=== PATIENT | female | born 2000 | race Hispanic/Latino ===

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

== ENCOUNTER 2021-03-19 10:44 | Emergency (ER) | payer OTHER ==
--- NOTE | 2021-03-19 11:24 | EDM.PDOC ---
ED HPI GENERAL MEDICAL PROBLEM - General Chief Complaint: Respiratory Problem Stated Complaint: CHEST PAIN,CONGESTION Time Seen by Provider: 03/19/21 10:45 Source of Information: Reports: Patient History Limitations: Reports: No Limitations - History of Present Illness INITIAL COMMENTS - FREE TEXT/NARRATIVE: HISTORY AND PHYSICAL: History of present illness: Patient is a 20-year-old female who presents to the emergency room with complaints of midsternal chest pain and increased pain with taking deep breaths. She did have the symptoms approximately 5 to 6 days ago, was seen at the respiratory clinic on Friday. She did have a rapid COVID-19 test which was negative. Symptoms have not resolved. She has had subjective fevers. Patient denies any headache, change in vision, syncope or near syncope. Denies any back pain, hemoptysis or cough. Denies any GI or symptoms. No concern for .. Review of systems: As per history of present illness and below otherwise all systems reviewed and negative. Past medical history: As per history of present illness and as reviewed below otherwise noncontributory. Surgical history: As per history of present illness and as reviewed below otherwise noncontributory. Social history: See social history for further information Family history: As per history of present illness and as reviewed below otherwise noncont ributory. Physical exam: General: Well developed and well nourished. Alert and orientated x 3. Nontoxic in appearance and in no acute distress. Vital signs are stable and have been reviewed by me. Nursing notes were reviewed. HEENT: Atraumatic, normocephalic, pupils equal and reactive bilaterally, negative for conjunctival pallor or scleral icterus, mucous membranes moist, TMs normal bilaterally, throat clear, neck supple, nontender, trachea midline. No drooling or trismus noted. No meningeal signs. No hot potato voice noted. Lungs: Clear to auscultation bilaterally. No wheezes, rales, or rhonchi. Chest nontender. Normal work of breathing, no accessory muscles used. Heart: S1S2, regular rate and rhythm without overt murmur, gallops, or rubs. No JVD. No peripheral edema Abdomen: Soft, nondistended, nontender. Normoactive bowel sounds. Negative for masses or costovertebral tenderness. Skin: Intact, warm, dry. No lesions or rashes noted. Hematologic: No petechiae or purpra. Mucosa appropriate color and normal nail bed color and refill. Extremities: Atraumatic, moves all extremities per self without difficulty or deficits, negative for cords or calf pain. Neurovascular unremarkable. Neuro: Awake, alert, oriented. Cranial nerves II through XII unremarkable. Cerebellum unremarkable. Motor and sensory unremarkable throughout. Exam nonfocal. Psychiatric: Mood and affect are appropriate. Normal thought process. Answering questions appropriately. Notes: *This patient was seen and evaluated during the 2019 SARS-CoV-2 novel coronavirus pandemic period. Community viral transmission is ongoing at time of this encounter and the emergency department is operating under pandemic response procedures. Patient's physical exam is unremarkable. During the triage assessment she did s carter that she has had thoughts of self mutilation. Discussing this further she states that sometimes she does think about self inflicting lacerations to her body but has never acted upon it and has "more self-control than that". We discussed outpatient resources that can help her with these thoughts. If she does have worsening thoughts or does act upon them or has any thoughts of suicide that she should return to the emergency room immediately. Again patient reassures me that she would never act upon any self-mutilation and has not had thoughts of killing herself. I did offer to repeat a COVID-19/influenza test today, she declines. Due to age I did offer to do a test prior to x- ray, she declines stating she has no concern for . We will do a chest x-ray. X-ray shows no acute findings. Due to length of symptoms, will treat with abx. VSS. I have talked with the patient about today's findings, in addition to providing specific details for plan of care. Reassessment at the time of disposition demonstrates that the patient is in no acute distress. The patient is stable for discharge, counseling was provided and we discussed in great detail signs and symptoms that would prompt them to return to the Emergency Department. Medication, follow up and supportive care measures were reviewed and discussed. Voices understanding and is agreeable to plan of care. Denies any further questions or concerns at this time. Diagnostics: Chest x-ray Therapeutics: None Prescription: Tessalon, Z-Avery Impression: Bronchitis Plan: 1. You were evaluated today on an emergent basis. Your chest x-ray is unremarkable for pneumonia. We will treat you with an antibiotic and Tessalon Perles for your cough. 2. You can alternate Tylenol and ibuprofen as needed for pain and fever management. 3. We encourage you to follow up with your primary care provider and/or recommended specialist in the next few days for re-evaluation and further care/management. 4. If your symptoms should worsen, new symptoms develop or any of the signs and symptoms we discussed should arise please return to the emergency room or call 911 (if needed). Definitive disposition and diagnosis as appropriate pending reevaluation and review of above. - Related Data Allergies Allergy/AdvReac Type Severity Reaction Status Date / Time No Known Allergies Allergy Verified 03/19/21 10:57 Home Meds: Home Meds Azithromycin [Zithromax] 1 dose PO DAILY 5 Days #6 tab 03/19/21 [Rx] Benzonatate [Tessalon Perle] 100 mg PO TID PRN #20 capsule 03/19/21 [Rx] methylPREDNISolone [Medrol] 1 dose PO DAILY 6 Days #1 dospk 03/19/21 [Rx] Past Medical History - Past Health History Medical/Surgical History: Denies Medical/Surgical History HEENT History: Reports: None Cardiovascular History: Reports: None Respiratory History: Reports: None Gastrointestinal History: Reports: None Genitourinary History: Reports: None 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 Musculoskeletal History: Reports: None Neurological History: Reports: None Psychiatric History: Reports: None Endocrine/Metabolic History: Reports: None Hematologic History: Reports: None Immunologic History: Reports: None Oncologic (Cancer) History: Reports: None Dermatologic History: Reports: None - Infectious Disease History Infectious Disease History: Reports: Chicken Pox - Past Surgical History Head Surgeries/Procedures: Reports: None HEENT Surgical History: Reports: None Cardiovascular Surgical History: Reports: None Respiratory Surgical History: Reports: None GI Surgical History: Reports: None Female Surgical History: Reports: None Endocrine Surgical History: Reports: None Neurological Surgical History: Reports: None Musculoskeletal Surgical History: Reports: None Oncologic Surgical History: Reports: None Dermatological Surgical History: Reports: None Social & Family History - Family History Family Medical History: No Pertinent Family History - Tobacco Use Tobacco Use Status *Q: Current Every Day Tobacco User Years of Tobacco use: 2 Packs/Tins Daily: 1 - Caffeine Use Caffeine Use: Reports: Coffee, Energy Drinks, Soda, Tea - Recreational Drug Use Recreational Drug Use: Yes Recreational Drug Type: Reports: Marijuana/Hashish Recreational Drug Use Frequency: Daily ED ROS GENERAL - Review of Systems Review Of Systems: Comprehensive ROS is negative, except as noted in HPI. ED EXAM, GENERAL - Physical Exam Exam: See Below (See dictation) Course - Vital Signs Last Recorded V/S: Last Vital Signs Temp 97.5 F 03/19/21 11:59 Pulse 65 03/19/21 11:59 Resp 18 03/19/21 11:59 BP 119/61 03/19/21 11:59 Pulse Ox 98 03/19/21 11:59 Departure - Departure Time of Disposition: 11:37 Disposition: Home, Self-Care 01 Clinical Impression: Bronchitis - Discharge Information Prescriptions: methylPREDNISolone [Medrol] 1 dose PO DAILY 6 Days #1 dospk Benzonatate [Tessalon Perle] 100 mg PO TID PRN #20 capsule PRN Reason: Cough Azithromycin [Zithromax] 1 dose PO DAILY 5 Days #6 tab Instructions: Acute Bronchitis, Adult, [id number] Forms: ED Department Discharge Additional Instructions: The following information is given to patients seen in the emergency department who are being discharged to home. This information is to outline your options for follow-up care. We provide all patients seen in our emergency department with a follow-up referral. The need for follow-up, as well as the timing and circumstances, are variable depending upon the specifics of your emergency department visit. If you don't have a primary care physician on staff, we will provide you with a referral. We always advise you to contact your personal physician following an emergency department visit to inform them of the circumstance of the visit and for follow-up with them and/or the need for any referrals to a consulting specialist. The emergency department will also refer you to a specialist when appropriate. This referral assures that you have the opportunity for follow-up care with a specialist. All of these measure are taken in an effort to provide you with optimal care, which includes your follow-up. Under all circumstances we always encourage you to contact your private physician who remains a resource for coordinating your care. When calling for follow-up care, please make the office aware that this follow-up is from your recent emergency room visit. If for any reason you are refused follow-up, please contact the [facility] Emergency Department at and asked to speak to the emergency department charge nurse. [facility] [address] [place] [address] [facility] [address] [place] [address] Thank you for choosing the [facility] emergency department in [place] for your medical needs today. It was a pleasure caring for you. Today you were seen in the emergency department for cough and chest pain. 1. You were evaluated today on an emergent basis. Your chest x-ray is unremarkable for pneumonia. We will treat you with an antibiotic and Tessalon Perles for your cough. 2. You can alternate Tylenol and ibuprofen as needed for pain and fever management. 3. We encourage you to follow up with your primary care provider and/or recommended specialist in the next few days for re-evaluation and further ca re/management. 4. If your symptoms should worsen, new symptoms develop or any of the signs and symptoms we discussed should arise please return to the emergency room or call 911 (if needed). Sepsis Event Note (ED) - Evaluation Sepsis Screening Result: No Definite Risk - Focused Exam Vital Signs: Vital Signs Temp Pulse Resp BP Pulse Ox 03/19/21 11:59 97.5 F 65 18 119/61 98 03/19/21 10:55 96.7 F L 85 17 126/63 99
[2021-03-19 12:00] VITALS: BP 119/61; PULSE 65
--- NOTE | 2021-03-19 12:01 | CR ---
Indication: Pain and shortness of breath Comparison: None available. Technique: Single AP view chest Findings: There is no focal consolidation, effusion, or pneumothorax. The cardiomediastinal silhouette is within normal limits. The bony thorax is grossly intact. Impression: No acute cardiopulmonary abnormality. Dictated by Chucky Waters MD @ 03/19/2021 12:00:[address] Chucky Waters @ Mar 19 2021 12:00PM
== END 2021-03-19 12:05 | disposition home or self-care (01) ==
LOC: MW.ED 10:44
DX: J40 Bronchitis, not specified as acute or chronic (principal); Z72.0 Tobacco use
CPT/HCPCS: 71045; 71045-26; 99284-25

== ENCOUNTER 2021-03-25 20:59 | Emergency (ER) | payer OTHER ==
--- NOTE | 2021-03-25 21:56 | CR ---
HISTORY: Palpitations. COMPARISON: None. FINDINGS: Single frontal view of the chest. The lungs are clear. No evidence for pneumonia. Heart size and pulmonary vascularity within normal limits. Bones and soft tissues within normal. Dictated by Tammie Dasilva MD @ 03/25/2021 9:54:[address] Tammie Dasilva @ Mar 25 2021 9:54PM
[2021-03-25 22:06] LABS: BLOOD UREA NITROGEN,BUN 12 mg/dL (7.0-18.0); CARBON DIOXIDE,CO2 24.7 mmol/L (21.0-32.0); CHLORIDE,CL 106 mmol/L (98-107); GLUCOSE RANDOM 100 mg/dL (74-106); POTASSIUM,K 3.9 mmol/L (3.5-5.1); SODIUM,NA 142 mmol/L (136-145)
--- NOTE | 2021-03-25 22:46 | EDM.PDOC ---
ED HPI GENERAL MEDICAL PROBLEM - General Chief Complaint: General Stated Complaint: HEART PALPITATIONS, BRONCHITIS Time Seen by Provider: 03/25/21 21:10 - History of Present Illness INITIAL COMMENTS - FREE TEXT/NARRATIVE: HISTORY AND PHYSICAL: History of present illness: This is a 20-year-old female who presents ER today complaining of palpitations in her chest x1 day. Patient reports that she was seen diagnosed with bronchi tis and is finished a course of antibiotic. Patient denies any recent fevers, shakes, chills, nausea, vomiting, diarrhea, dysuria, frequency, urgency or any other symptoms since her diagnosis of bronchitis. Patient denies any shortness of breath. Patient has a lower extremity edema. Patient has any calf tenderness. Patient has an hemoptysis. Patient denies any mechanical pills. Patient does smoke marijuana and vapes nicotine. Patient denies any alcohol or other drugs. Patient denies any dizziness, syncope or presyncope. Review of systems: As per history of present illness and below otherwise all systems reviewed and negative. Past medical history: As per history of present illness and as reviewed below otherwise noncontributory. Surgical history: As per history of present illness and as reviewed below otherwise noncontributory. Social history: No reported history of drug abuse. Family history: As per history of present illness and as reviewed below otherwise noncontr ibutory. Physical exam: This patient was seen and evaluated during the 2019 SARS-CoV-2 novel coronavirus pandemic period. Community viral transmission is ongoing at time of this encounter and the emergency department is operating under pandemic response procedures. Constitutional: Patient is oriented to person, place, and time. Appears well- developed and well-nourished. No distress. HEENT: Moist mucous membranes Head: Normocephalic and atraumatic Eyes: Right eye exhibits no discharge. Left eye exhibits no discharge. No scleral icterus Neck: Normal range of motion. No tracheal deviation present. Cardiovascular: Normal rate and regular rhythm. Pulmonary: Effort normal, no respiratory distress. Abdominal: No distention Musculoskeletal: Normal range of motion Neurologic: Alert and oriented to person, place and time. Skin: Gazelle, warm and dry. Psychiatric: Normal mood and affect. Behavior is normal. Judgment and thought content normal. Nursing note and vital signs have been reviewed Diagnostics: CBC, CMP within normal limits Chest Xray: Normal cardiac silhouette No infiltrates or effusions identified. No PTX No evidence of acute bony fracture. As interpreted by ER MD: Ayleen EKG: As interpreted by ER physician: Ayleen: Nonspecific ST-T wave abnormalities Normal axis No evidence of ST elevation IA Normal sinus rhythm heart rate of 74 Therapeutics: [] Assessment and plan: 20-year-old who presents ER today with palpitations. Patient's labs are all within normal limits. Is unclear whether or not this might be residual effect from her bronchitis. Patient has no abnormalities in her cardiac work-up. Patient be discharged home safely with instructions to follow-up with her primary care physician for reevaluation. Reassessment at the time of disposition demonstrates that the patient is in no acute distress. The patient has remained stable throughout the entire ED visit and is without objective evidence for acute process requiring urgent inter vention or hospitalization. The patient is stable for discharge, counseling is provided as documented above, discussed symptomatic treatment and specific conditions for return. I have spoken with the patient/caregiver and discussed todays findings, in addition to providing specific details for the plan of care. Questions are answered and there is agreement with the plan. Definitive disposition and diagnosis as appropriate pending reevaluation and review of above. - Related Data Allergies Allergy/AdvReac Type Severity Reaction Status Date / Time No Known Allergies Allergy Verified 03/25/21 21:08 Home Meds: Home Meds . [No Known Home Meds] 03/25/21 [History] Past Medical History - Past Health History Medical/Surgical History: Denies Medical/Surgical History HEENT History: Reports: None Cardiovascular History: Reports: None Respiratory History: Reports: None Gastrointestinal History: Reports: None Genitourinary History: Reports: None NURSE FIRST ASSIST History: Reports: None Musculoskeletal History: Reports: None Neurological History: Reports: None Psychiatric History: Reports: None Endocrine/Metabolic History: Reports: None Hematologic History: Reports: None Immunologic History: Reports: None Oncologic (Cancer) History: Reports: None Dermatologic History: Reports: None - Infectious Disease History Infectious Disease History: Reports: Chicken Pox - Past Surgical History Head Surgeries/Procedures: Reports: None HEENT Surgical History: Reports: None Cardiovascular Surgical History: Reports: None Respiratory Surgical History: Reports: None GI Surgical History: Reports: None Female Surgical History: Reports: None Endocrine Surgical History: Reports: None Neurological Surgical History: Reports: None Musculoskeletal Surgical History: Reports: None Oncologic Surgical History: Reports: None Dermatological Surgical History: Reports: None Social & Family History - Family History Family Medical History: No Pertinent Family History - Caffeine Use Caffeine Use: Reports: Coffee - Recreational Drug Use Recreational Drug Use: Yes Drug Use in Last 12 Months: Yes Recreational Drug Type: Reports: Marijuana/Hashish Recreational Drug Use Frequency: Daily ED ROS GENERAL - Review of Systems Review Of Systems: See Below ED EXAM, GENERAL - Physical Exam Exam: See Below #1 Interpretation EKG Interpretation Comments: EKG: As interpreted by ER physician: Ayleen: Nonspecific ST-T wave abnormalities Normal axis No evidence of ST elevation IA Normal sinus rhythm heart rate of 74 Course - Vital Signs Last Recorded V/S: Last Vital Signs Temp 97.1 F 03/25/21 21:08 Pulse 89 03/25/21 21:08 Resp 16 03/25/21 21:08 BP 134/78 03/25/21 21:08 Pulse Ox 96 03/25/21 21:08 - Orders/Labs/Meds Orders: Active Orders 24 hr Category Date Time Status EKG Documentation Completion [RC] AM Care 03/25/21 21:16 Active HCG QUALITATIVE,URINE [URCHEM] Stat Lab 03/25/21 21:06 Received Labs: Laboratory Tests 03/25/21 03/25/21 03/25/21 Range/Units 21:06 21:30 21:30 WBC 12.43 H (4.0-11.0) K/uL RBC 5.60 (4.30-5.90) M/uL Hgb 15.8 (12.0-16.0) g/dL Hct 46.8 H (36.0-46.0) % MCV 83.6 (80.0-98.0) fL MCH 28.2 (27.0-32.0) pg MCHC 33.8 (31.0-37.0) g/dL RDW Std Deviation 38.6 (28.0-62.0) fl RDW Coeff of Teena 13 (11.0-15.0) % Plt Count 262 (150-400) K/uL MPV 10.30 (7.40-12.00) fL Neut % (Auto) 64.4 (48.0-80.0) % Lymph % (Auto) 25.9 (16.0-40.0) % Mckean % (Auto) 8.5 (0.0-15.0) % Eos % (Auto) 1.0 (0.0-7.0) % Baso % (Auto) 0.2 (0.0-1.5) % Neut # (Auto) 8.0 H (1.4-5.7) K/uL Lymph # (Auto) 3.2 H (0.6-2.4) K/uL Mckean # (Auto) 1.1 H (0.0-0.8) K/uL Eos # (Auto) 0.1 (0.0-0.7) K/uL Baso # (Auto) 0.0 (0.0-0.1) K/uL Nucleated RBC % 0.0 /100WBC Nucleated RBCs # 0 K/uL Sodium 142 (136-145) mmol/L Potassium 3.9 (3.5-5.1) mmol/L Chloride 106 (98-107) mmol/L Carbon Dioxide 24.7 (21.0-32.0) mmol/L BUN 12 (7.0-18.0) mg/dL Creatinine 1.0 (0.6-1.0) mg/dL Est Cr Clr Drug Dosing 78.14 mL/min Estimated GFR (MDRD) > 60.0 ml/min Glucose 100 (74-106) mg/dL Calcium 8.2 L (8.5-10.1) mg/dL Total Bilirubin 0.3 (0.2-1.0) mg/dL AST 14 L (15-37) IU/L ALT 26 (14-63) IU/L Alkaline Phosphatase 67 (46-116) U/L Troponin I < 0.050 (0.000-0.056) ng/mL Total Protein 7.4 (6.4-8.2) g/dL Albumin 3.8 (3.4-5.0) g/dL Globulin 3.6 (2.6-4.0) g/dL Albumin/Globulin Ratio 1.1 (0.9-1.6) TSH 3rd Generation 1.98 (0.52-4.13) uIU/mL Urine Color YELLOW Urine Appearance SLT CLOUDY Urine pH 6.0 (5.0-8.0) Ur Specific [place] 1.025 (1.001-1.035) Urine Protein NEGATIVE (NEGATIVE) mg/dL Urine Glucose (UA) NEGATIVE (NEGATIVE) mg/dL Urine Ketones NEGATIVE (NEGATIVE) mg/dL Urine Occult Blood MODERATE H (NEGATIVE) Urine Nitrite NEGATIVE (NEGATIVE) Urine Bilirubin NEGATIVE (NEGATIVE) Urine Urobilinogen 0.2 (<2.0) EU/dL Ur Leukocyte Esterase TRACE H (NEGATIVE) Urine RBC 1-4 (0-2/HPF) Urine WBC 3-6 (0-5/HPF) Ur Epithelial Cells FEW (NONE-FEW) Amorphous Sediment LIGHT (NEGATIVE) Urine Bacteria FEW (NEGATIVE) Urine Mucus LIGHT (NONE-MOD) Departure - Departure Time of Disposition: 22:46 Disposition: Home, Self-Care 01 Condition: Good Clinical Impression: Palpitations - Discharge Information Instructions: Palpitations, [id number] Referrals: PCP,None [Primary Care Provider] - Additional Instructions: You were seen and evaluated in the ER today secondary to palpitations. The work-up in the emergency department was completely normal. Please make an appointment to follow-up with your doctor for further evaluation of your symptoms and referrals as deemed appropriate. The following information is given to patients seen in the emergency department who are being discharged to home. This information is to outline your options for follow-up care. We provide all patients seen in our emergency department with a follow-up referral. The need for follow-up, as well as the timing and circumstances, are variable depending upon the specifics of your emergency department visit. If you don't have a primary care physician on staff, we will provide you with a referral. We always advise you to contact your personal physician following an emergency department visit to inform them of the circumstance of the visit and for follow-up with them and/or the need for any referrals to a consulting specialist. The emergency department will also refer you to a specialist when appropriate. This referral assures that you have the opportunity for follow-up care with a specialist. All of these measure are taken in an effort to provide you with optimal care, which includes your follow-up. Under all circumstances we always encourage you to contact your private physician who remains a resource for coordinating your care. When calling for follow-up care, please make the office aware that this follow-up is from your r ecent emergency room visit. If for any reason you are refused follow-up, please contact the [facility] Emergency Department at and asked to speak to the emergency department charge nurse. [facility] - Primary Care [address] [place] [address] [facility] [address] [place] [address] Sepsis Event Note (ED) - Evaluation Sepsis Screening Result: No Definite Risk - Focused Exam Vital Signs: Vital Signs Temp Pulse Resp BP Pulse Ox 03/25/21 21:08 97.1 F 89 16 134/78 96 - My Orders Last 24 Hours: My Active Orders 03/25/21 21:06 HCG QUALITATIVE,URINE [URCHEM] Stat 03/25/21 21:16 EKG Documentation Completion [RC] AM - Assessment/Plan Last 24 Hours: My Active Orders 03/25/21 21:06 HCG QUALITATIVE,URINE [URCHEM] Stat 03/25/21 21:16 EKG Documentation Completion [RC] AM
[2021-03-25 22:52] VITALS: BP 129/79; PULSE 70
== END 2021-03-25 22:51 | disposition home or self-care (01) ==
LOC: MW.ED 20:59
DX: R00.2 Palpitations (principal)
CPT/HCPCS: 36415; 71045; 71045-26; 80053; 81001; 81025; 84443; 84484; 85025; 93005; 93010; 99284; 99285-25

== ENCOUNTER 2021-04-16 09:31 | Emergency (ER) | payer OTHER ==
[2021-04-16] MEDS ORDERED: Sodium Chloride 0.9% 2.5 ML Syringe FLUSH PRN (09:59)
[2021-04-16] MEDS ORDERED: Ondansetron 4 MG/2 ML SDV IVPUSH ONE (09:59)
[2021-04-16] MEDS ORDERED: Sodium Chloride 0.9% 1,000 ML IV ONE (09:59)
[2021-04-16] MEDS ORDERED: Sodium Chloride 0.9% 10 ML Syringe FLUSH PRN (09:59)
--- NOTE | 2021-04-16 10:08 | EDM.PDOC ---
ED HPI GENERAL MEDICAL PROBLEM - General Chief Complaint: General Stated Complaint: FAINTED Time Seen by Provider: 04/16/21 09:59 - History of Present Illness INITIAL COMMENTS - FREE TEXT/NARRATIVE: HISTORY AND PHYSICAL: History of present illness: This is a 20-year-old female with no significant past medical history who presents to the ER today secondary to feeling weak and dizzy today. Patient reports that she woke up today to go to work. She reports she stood up and walking and getting ready and then woke up on the floor. Patient reports that she thinks that she passed out. Patient denies any pain or trauma to her head upper or lower extremities or back from falling to the ground with her syncopal episode. At this time, patient reports that she has had a cough with increased sputum production since her diagnosis of bronchitis 1 month ago. Patient reports that she has had nausea and vomiting x2 in the last 24 hours. Patient reports that her first episode of emesis was yesterday and her second episode of emesis was today after she passed out. Patient reports that she has had loose stools with approximately 3 episodes of diarrhea in the last 24 hours. Patient denies any recent fevers, shakes, chills. Patient has any chest pain or shortness of breath. Patient denies abdominal pain or discomfort. Patient reports that she is currently on her menses. Patient reports that she stopped vaping marijuana approximately 2 weeks ago but still vapes nicotine. Patient denies any other drugs. Patient reports that she did drink a bottle of kinky and 1 or 2 beers last night and thinks that her symptoms today may be related to that. Patient denies any dysuria, frequency, urgency. Patient denies any melena or bright red blood per rectum. Patient denies any hematemesis or coffee-ground emesis. Review of systems: As per history of present illness and below otherwise all systems reviewed and negative. Past medical history: As per history of present illness and as reviewed below otherwise nonco ntributory. Surgical history: As per history of present illness and as reviewed below otherwise noncontributory. Social history: No reported history of drug abuse. Family history: As per history of present illness and as reviewed below otherwise noncontributory. Physical exam: This patient was seen and evaluated during the 2019 SARS-CoV-2 novel coronavirus pandemic period. Community viral transmission is ongoing at time of this encounter and the emergency department is operating under pandemic response procedures. Constitutional: Patient is oriented to person, place, and time. Appears well- developed and well-nourished. No distress. HEENT: Moist mucous membranes Head: Normocephalic and atraumatic Eyes: Right eye exhibits no discharge. Left eye exhibits no discharge. No scleral icterus Neck: Normal range of motion. No tracheal deviation present. Cardiovascular: Normal rate and regular rhythm. Heart is regular rate and rhythm with an S1-S2 with no gallops murmurs or rubs. Pulmonary: Effort normal, no respiratory distress. Lungs are clear without any wheezing rales or rhonchi Abdominal: No distention, soft nondistended no rebound or guarding with normal active bowel sounds. Musculoskeletal: Normal range of motion Neuro: A&Ox3. Cranial nerves II-XII grossly intact, 5/5 strength to bilateral upper and lower extremities, sensation intact to bilateral upper and lower extremities, no nystagmus, PERRLA, EOMI, normal speech, proprioception intact to bilateral lower extremities, normal finger to nose test, gait normal. Skin: Erwin, warm and dry. Psychiatric: Normal mood and affect. Behavior is normal. Judgment and thought content normal. Nursing note and vital signs have been reviewed Diagnostics: CBC, CMP, UDS, UA, , EKG all within normal limits. Positive marijuana in urine Chest Xray: Normal cardiac silhouette No infiltrates or effusions identified. No PTX No evidence of acute bony fracture. As interpreted by ER MD: [employer]: NSS x1 L, Zofran Assessment and plan: This is a 20-year-old female who presents ER today with a syncopal episode this morning when she was getting ready for work. 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 Patient reports that she did drink more than usual last night and has been having episodes of nausea vomiting and diarrhea for the last 1 to 2 days. Patient reports that over the last several days she feels like her bronchitis is also coming back. Patient will receive IV fluids here in the ED, a dose of Zofran, we will check her electrolytes given her recent nausea vomiting and omar rrhea as well as alcohol use. Patient will be reevaluated once labs are obtained as well as chest x-ray. Patient's work-up in the ER is been unremarkable. Patient feels better after the IV fluids. Patient be discharged home with Zofran and instructions to rest and follow-up with her primary care physician. Reassessment at the time of disposition demonstrates that the patient is in no acute distress. The patient has remained stable throughout the entire ED visit and is without objective evidence for acute process requiring urgent intervention or hospitalization. The patient is stable for discharge, counseling is provided as documented above, discussed symptomatic treatment and specific conditions for return. I have spoken with the patient/caregiver and discussed todays findings, in addition to providing specific details for the plan of care. Questions are answered and there is agreement with the plan. Definitive disposition and diagnosis as appropriate pending reevaluation and sia guardado of above. - Related Data Allergies Allergy/AdvReac Type Severity Reaction Status Date / Time No Known Allergies Allergy Verified 04/16/21 09:46 Home Meds: Home Meds Ondansetron [Zofran ODT] 4 mg PO Q6H PRN #12 tab.dis 04/16/21 [Rx] Past Medical History - Past Health History Medical/Surgical History: Denies Medical/Surgical History HEENT History: Reports: None Cardiovascular History: Reports: None Respiratory History: Reports: None Other Respiratory History: bronchitis in March 2021 Gastrointestinal History: Reports: None Genitourinary History: Reports: None [employer] History: Reports: None Musculoskeletal History: Reports: None Neurological History: Reports: None Psychiatric History: Reports: None Endocrine/Metabolic History: Reports: None Hematologic History: Reports: None Immunologic History: Reports: None Oncologic (Cancer) History: Reports: None Dermatologic History: Reports: None - Infectious Disease History Infectious Disease History: Reports: None - Past Surgical History Head Surgeries/Procedures: Reports: None HEENT Surgical History: Reports: None Cardiovascular Surgical History: Reports: None Respiratory Surgical History: Reports: None GI Surgical History: Reports: None Female Surgical History: Reports: None Endocrine Surgical History: Reports: None Neurological Surgical History: Reports: None Musculoskeletal Surgical History: Reports: None Oncologic Surgical History: Reports: None Dermatological Surgical History: Reports: None Social & Family History - Family History Family Medical History: No Pertinent Family History - Caffeine Use Caffeine Use: Reports: Coffee - Recreational Drug Use Recreational Drug Use: No ED ROS GENERAL - Review of Systems Review Of Systems: See Below ED EXAM, GENERAL - Physical Exam Exam: See Below Course - Vital Signs Last Recorded V/S: Last Vital Signs Temp 97.0 F 04/16/21 09:46 Pulse 90 04/16/21 09:46 Resp 17 04/16/21 09:46 BP 118/70 04/16/21 09:46 Pulse Ox 98 04/16/21 09:46 - Orders/Labs/Meds Orders: Active Orders 24 hr Category Date Time Status Chest 2V [CR] Stat Exams 04/16/21 10:00 Taken Sodium Chloride 0.9% [Saline Flush] Med 04/16/21 09:59 Active 10 ml FLUSH ASDIRECTED PRN Sodium Chloride 0.9% [Saline Flush] Med 04/16/21 09:59 Active 2.5 ml FLUSH ASDIRECTED PRN Saline Lock Insert [OM.PC] Stat Oth 04/16/21 09:59 Ordered Medication Orders Sodium Chloride (Sodium Chloride 0.9% 10 Ml Syringe) 10 ml FLUSH ASDIRECTED PRN PRN Reason: Keep Vein Open Last Admin: 04/16/21 10:09 Dose: 10 ml Documented by: [id number] Sodium Chloride (Sodium Chloride 0.9% 2.5 Ml Syringe) 2.5 ml FLUSH ASDIRECTED PRN PRN Reason: Keep Vein Open Last Admin: 04/16/21 10:09 Dose: 2.5 ml Documented by: [email or web address] Labs: Laboratory Tests 04/16/21 04/16/21 04/16/21 Range/Units 10:12 10:12 10:12 WBC 5.92 (4.0-11.0) K/uL RBC 5.55 (4.30-5.90) M/uL Hgb 15.5 (12.0-16.0) g/dL Hct 46.1 H (36.0-46.0) % MCV 83.1 (80.0-98.0) fL MCH 27.9 (27.0-32.0) pg MCHC 33.6 (31.0-37.0) g/dL RDW Std Deviation 38.9 (28.0-62.0) fl RDW Coeff of Teena 13 (11.0-15.0) % Plt Count 233 (150-400) K/uL MPV 10.40 (7.40-12.00) fL Neut % (Auto) 55.7 (48.0-80.0) % Lymph % (Auto) 28.2 (16.0-40.0) % [place] % (Auto) 11.0 (0.0-15.0) % Eos % (Auto) 4.4 (0.0-7.0) % Baso % (Auto) 0.7 (0.0-1.5) % Neut # (Auto) 3.3 (1.4-5.7) K/uL Lymph # (Auto) 1.7 (0.6-2.4) K/uL [place] # (Auto) 0.7 (0.0-0.8) K/uL Eos # (Auto) 0.3 (0.0-0.7) K/uL Baso # (Auto) 0.0 (0.0-0.1) K/uL Nucleated RBC % 0.0 /100WBC Nucleated RBCs # 0 K/uL Sodium (136-145) mmol/L Potassium (3.5-5.1) mmol/L Chloride (98-107) mmol/L Carbon Dioxide (21.0-32.0) mmol/L BUN (7.0-18.0) mg/dL Creatinine (0.6-1.0) mg/dL Est Cr Clr Drug Dosing mL/min Estimated GFR (MDRD) ml/min Glucose (74-106) mg/dL Calcium (8.5-10.1) mg/dL Total Bilirubin (0.2-1.0) mg/dL AST (15-37) IU/L ALT (14-63) IU/L Alkaline Phosphatase (46-116) U/L Total Protein (6.4-8.2) g/dL Albumin (3.4-5.0) g/dL Globulin (2.6-4.0) g/dL Albumin/Globulin Ratio (0.9-1.6) Lipase (73-393) U/L Urine Color DARK YELLOW Urine Appearance CLEAR Urine pH 5.5 (5.0-8.0) Ur Specific [place] >= 1.030 (1.001-1.035) Urine Protein 30 H (NEGATIVE) mg/dL Urine Glucose (UA) NEGATIVE (NEGATIVE) mg/dL Urine Ketones NEGATIVE (NEGATIVE) mg/dL Urine Occult Blood LARGE H (NEGATIVE) Urine Nitrite NEGATIVE (NEGATIVE) Urine Bilirubin MODERATE H (NEGATIVE) Urine Ictotest NEGATIVE Urine Urobilinogen 1.0 (<2.0) EU/dL Ur Leukocyte Esterase NEGATIVE (NEGATIVE) Urine RBC 6-10 (0-2/HPF) Urine WBC RARE (0-5/HPF) Ur Epithelial Cells FEW (NONE-FEW) Urine Bacteria FEW (NEGATIVE) Urine HCG, Qual NEGATIVE (NEGATIVE) Urine Opiates Screen (NEGATIVE) Ur Oxycodone Screen (NEGATIVE) Urine Methadone Screen (NEGATIVE) Ur Barbiturates Screen (NEGATIVE) Ur Phencyclidine Scrn (NEGATIVE) Ur Amphetamine Screen (NEGATIVE) U Methamphetamines Scrn (NEGATIVE) U Benzodiazepines Scrn (NEGATIVE) U Cocaine Metab Screen (NEGATIVE) U Marijuana (THC) Screen (NEGATIVE) Ethyl Alcohol mg/dL 04/16/21 04/16/21 Range/Units 10:12 10:13 WBC (4.0-11.0) K/uL RBC (4.30-5.90) M/uL Hgb (12.0-16.0) g/dL Hct (36.0-46.0) % MCV (80.0-98.0) fL MCH (27.0-32.0) pg MCHC (31.0-37.0) g/dL RDW Std Deviation (28.0-62.0) fl RDW Coeff of Teena (11.0-15.0) % Plt Count (150-400) K/uL MPV (7.40-12.00) fL Neut % (Auto) (48.0-80.0) % Lymph % (Auto) (16.0-40.0) % [place] % (Auto) (0.0-15.0) % Eos % (Auto) (0.0-7.0) % Baso % (Auto) (0.0-1.5) % Neut # (Auto) (1.4-5.7) K/uL Lymph # (Auto) (0.6-2.4) K/uL [place] # (Auto) (0.0-0.8) K/uL Eos # (Auto) (0.0-0.7) K/uL Baso # (Auto) (0.0-0.1) K/uL Nucleated RBC % /100WBC Nucleated RBCs # K/uL Sodium 144 (136-145) mmol/L Potassium 3.5 (3.5-5.1) mmol/L Chloride 107 (98-107) mmol/L Carbon Dioxide 25.9 (21.0-32.0) mmol/L BUN 9 (7.0-18.0) mg/dL Creatinine 0.9 (0.6-1.0) mg/dL Est Cr Clr Drug Dosing 90.47 mL/min Estimated GFR (MDRD) > 60.0 ml/min Glucose 91 (74-106) mg/dL Calcium 8.8 (8.5-10.1) mg/dL Total Bilirubin 0.6 (0.2-1.0) mg/dL AST 13 L (15-37) IU/L ALT 30 (14-63) IU/L Alkaline Phosphatase 74 (46-116) U/L Total Protein 7.9 (6.4-8.2) g/dL Albumin 4.0 (3.4-5.0) g/dL Globulin 3.9 (2.6-4.0) g/dL Albumin/Globulin Ratio 1.0 (0.9-1.6) Lipase 110 (73-393) U/L Urine Color Urine Appearance Urine pH (5.0-8.0) Ur Specific [place] (1.001-1.035) Urine Protein (NEGATIVE) mg/dL Urine Glucose (UA) (NEGATIVE) mg/dL Urine Ketones (NEGATIVE) mg/dL Urine Occult Blood (NEGATIVE) Urine Nitrite (NEGATIVE) Urine Bilirubin (NEGATIVE) Urine Ictotest Urine Urobilinogen (<2.0) EU/dL Ur Leukocyte Esterase (NEGATIVE) Urine RBC (0-2/HPF) Urine WBC (0-5/HPF) Ur Epithelial Cells (NONE-FEW) Urine Bacteria (NEGATIVE) Urine HCG, Qual (NEGATIVE) Urine Opiates Screen NEGATIVE (NEGATIVE) Ur Oxycodone Screen NEGATIVE (NEGATIVE) Urine Methadone Screen NEGATIVE (NEGATIVE) Ur Barbiturates Screen NEGATIVE (NEGATIVE) Ur Phencyclidine Scrn NEGATIVE (NEGATIVE) Ur Amphetamine Screen NEGATIVE (NEGATIVE) U Methamphetamines Scrn NEGATIVE (NEGATIVE) U Benzodiazepines Scrn NEGATIVE (NEGATIVE) U Cocaine Metab Screen NEGATIVE (NEGATIVE) U Marijuana (THC) Screen POSITIVE (NEGATIVE) Ethyl Alcohol < 3.0 mg/dL Meds: Medications Generic Name Dose Route Start Last Admin Trade Name Freq PRN Reason Stop Dose Admin Sodium Chloride 10 ml 04/16/21 09:59 04/16/21 10:09 Sodium Chloride 0.9% 10 Ml Syringe FLUSH 10 ml ASDIRECTED PRN Administration Keep Vein Open Sodium Chloride 2.5 ml 04/16/21 09:59 04/16/21 10:09 Sodium Chloride 0.9% 2.5 Ml Syringe FLUSH 2.5 ml ASDIRECTED PRN Administration Keep Vein Open Discontinued Medications Generic Name Dose Route Start Last Admin Trade Name Peggy PRN Reason Stop Dose Admin Sodium Chloride 1,000 mls @ 999 mls/hr 04/16/21 09:59 04/16/21 10:09 Normal Saline IV 04/16/21 10:59 999 mls/hr .Bolus ONE Administration Ondansetron HCl 4 mg 04/16/21 09:59 04/16/21 10:09 Ondansetron 4 Mg/2 Ml Sdv IVPUSH 04/16/21 10:00 4 mg ONETIME ONE Administration Departure - Departure Time of Disposition: 11:28 Disposition: Home, Self-Care 01 Condition: Good Clinical Impression: Syncope, Dehydration, Engages in vaping - Discharge Information Instructions: Dehydration, Adult, [id number], Syncope, [id number], Electronic Cigarette Information Referrals: Vadim Garcai MD [Primary Care Provider] - Forms: ED Department Discharge Additional Instructions: You were seen and evaluated in the ER today secondary to an episode of syncope earlier this morning. This is likely related to a degree of dehydration from the vomiting and diarrhea that you have been having in conjunction with the alcohol use from yesterday. Please get plenty of rest, drink plenty of fluids over the next 1 to 2 days. Please refrain from any vaping of any substances. You will be given a prescription for Zofran to assist you with nausea. Please make an appointment to see your family doctor in the next 1 to 2 days for reevaluation. The following information is given to patients seen in the emergency department who are being discharged to home. This information is to outline your options for follow-up care. We provide all patients seen in our emergency department with a follow-up referral. The need for follow-up, as well as the timing and circumstances, are variable depending upon the specifics of your emergency department visit. If you don't have a primary care physician on staff, we will provide you with a referral. We always advise you to contact your personal physician following an emergency department visit to inform them of the circumstance of the visit and for follow-up with them and/or the need for any referrals to a consulting specialist. The emergency department will also refer you to a specialist when appropriate. This referral assures that you have the opportunity for follow-up care with a specialist. All of these measure are taken in an effort to provide you with optimal care, which includes your follow-up. Under all circumstances we always encourage you to contact your private physician who remains a resource for coordinating your care. When calling for follow-up care, please make the office aware that this follow-up is from your recent emergency room visit. If for any reason you are refused follow-up, please contact the [facility] Emergency Department at and asked to speak to the emergency department charge nurse. [facility] [address] [place] [id number] [facility] [address] [place] [id number] Sepsis Event Note (ED) - Evaluation Sepsis Screening Result: No Definite Risk - Focused Exam Vital Signs: Vital Signs Temp Pulse Resp BP Pulse Ox 04/16/21 09:46 97.0 F 90 17 118/70 98 - My Orders Last 24 Hours: My Active Orders 04/16/21 09:59 Sodium Chloride 0.9% [Saline Flush] 10 ml FLUSH ASDIRECTED PRN Sodium Chloride 0.9% [Saline Flush] 2.5 ml FLUSH ASDIRECTED PRN Saline Lock Insert [OM.PC] Stat 04/16/21 10:00 Chest 2V [CR] Stat - Assessment/Plan Last 24 Hours: My Active Orders 04/16/21 09:59 Sodium Chloride 0.9% [Saline Flush] 10 ml FLUSH ASDIRECTED PRN Sodium Chloride 0.9% [Saline Flush] 2.5 ml FLUSH ASDIRECTED PRN Saline Lock Insert [OM.PC] Stat 04/16/21 10:00 Chest 2V [CR] Stat
[2021-04-16 11:07] LABS: BLOOD UREA NITROGEN,BUN 9 mg/dL (7.0-18.0); CARBON DIOXIDE,CO2 25.9 mmol/L (21.0-32.0); CHLORIDE,CL 107 mmol/L (98-107); GLUCOSE RANDOM 91 mg/dL (74-106); LIPASE 110 U/L (73-393); POTASSIUM,K 3.5 mmol/L (3.5-5.1); SODIUM,NA 144 mmol/L (136-145)
--- NOTE | 2021-04-16 11:59 | CR ---
For Patients: As a result of the Cures Act, medical imaging exams and procedure reports are released immediately into your electronic medical record. You may view this report before your referring provider. If you have questions, please contact your health care provider. INDICATION: Cough TECHNIQUE: Chest 2 views COMPARISON: March 25, 2021 FINDINGS: Cardiovascular and mediastinum: Heart size and vasculature are normal in caliber and appearance. Lungs and pleural spaces: Lungs are clear. No sign of infiltrate or mass. No sign of pleural effusion. No pneumothorax. Bones and soft tissues: No significant findings. IMPRESSION: No acute findings and no significant changes from the prior exam. No sign of pneumonia. Dictated by Mayur Dimas MD @ 04/16/2021 11:56:[address] Mayur Dimas @ Apr 16 2021 11:56AM
[2021-04-16 19:04] VITALS: BP 99/56; PULSE 72
== END 2021-04-16 12:18 | disposition home or self-care (01) ==
LOC: MW.ED 09:31
DX: R55 Syncope and collapse (principal); E86.0 Dehydration; F17.290 Nicotine dependence, other tobacco product, uncomplicated
CPT/HCPCS: 36415; 71046; 80053; 80305; 80307; 81001; 81025; 83690; 85025; J2405; J7030; 93010; 96374; 99283; 99284-25

== ENCOUNTER 2024-08-29 05:20 | Emergency (ER) | payer OTHER ==
[2024-08-29] MEDS: Sodium Chloride 0.9% 1,000 ML IV ONE (05:52)
[2024-08-29] MEDS: Ketorolac 30 MG/ML SDV IVPUSH ONE (05:52)
[2024-08-29] MEDS: Acetaminophen 500 MG Tab PO ONE (05:52)
[2024-08-29] MEDS: Sodium Chloride 0.9% 10 ML Syringe FLUSH PRN (05:57)
[2024-08-29] MEDS: Sodium Chloride 0.9% 2.5 ML Syringe FLUSH PRN (05:57)
[2024-08-29 06:00] LABS: BASOPHILS ABSOLUTE AUTO 0.03 K/uL (0.00-0.20); BASOPHILS PERCENT AUTO 0.4 % (0.0-1.0); EOSINOPHILS ABSOLUTE AUTO 0.16 K/uL (0.00-0.45); HEMATOCRIT 43.5 % (37.0-47.0); HEMOGLOBIN 14.9 g/dL (12.0-16.0); IMMATURE GRAN ABSOLUTE AUTO 0.03 K/uL (0.00-0.05); IMMATURE GRAN PERCENT AUTO 0.4 % (0.0-0.4); LYMPHOCYTES ABSOLUTE AUTO 0.95 K/uL (1.00-4.80); LYMPHOCYTES PERCENT AUTO 11.7 % (24.0-44.0); MEAN CORPUSCULAR HEMOGLOBIN 26.8 pg (28.0-32.0); MEAN CORPUSCULAR HGB CONC 34.3 g/dL (32.0-36.0); MEAN CORPUSCULAR VOLUME 78.4 fL (83.0-99.0); MEAN PLATELET VOLUME 9.6 fL (9.4-12.3); MONOCYTES ABSOLUTE AUTO 0.52 K/uL (0.00-0.80); MONOCYTES PERCENT AUTO 6.4 % (0.0-8.0); NEUTROPHILS ABSOLUTE AUTO 6.41 K/uL (1.80-7.70); NEUTROPHILS PERCENT AUTO 79.1 % (41.0-71.0); PLATELET COUNT,PLT 218 K/uL (150-400); RED BLOOD CELL COUNT 5.55 M/uL (4.10-5.30)
[2024-08-29] MEDS: Albuterol/Ipratropium 3.0-0.5 MG/3 ML Neb Soln NEB ONE (06:05)
[2024-08-29 06:37] LABS: CORONAVIRUS COVID-19 NAA NEGATIVE (NEGATIVE); INFLUENZA A NAA NEGATIVE (NEGATIVE); INFLUENZA B NAA NEGATIVE (NEGATIVE); RESPIRATORY SYNCYTIAL VIR NAA NEGATIVE (NEGATIVE)
[2024-08-29 06:48] LABS: A/G RATIO 0.8 (0.9-1.6); ALBUMIN 3.4 g/dL (3.4-5.0); BILIRUBIN TOTAL 0.4 mg/dL (0.2-1.0); CALCIUM 8.6 mg/dL (8.5-10.1); CARBON DIOXIDE,CO2 21.6 mmol/L (21.0-32.0); CREATININE 0.8 mg/dL (0.6-1.0); EST CRCL DRUG DOSING (CG) 99.25 mL/min; POTASSIUM,K 3.3 mmol/L (3.5-5.1); PROTEIN TOTAL,TP 7.5 g/dL (6.4-8.2)
[2024-08-29 07:06] VITALS: BP 117/70; PULSE 102
== END 2024-08-29 07:05 | disposition home or self-care (01) ==
LOC: MW.ED 05:20
DX: R05.9 Cough, unspecified (principal); Z79.84 Long term (current) use of oral hypoglycemic drugs; Z79.2 Long term (current) use of antibiotics; Z79.891 Long term (current) use of opiate analgesic; Z75.8 Other problems related to medical facilities and other health care
CPT/HCPCS: 0241U; 36415; 80053; 85025; 96361; 96374; 99285; A9270; J1885; J3490; J7030; J7620-GY